=== PATIENT | female | born 1945 | race Caucasian/White ===

== ENCOUNTER 2017-02-23 10:28 | Emergency (ER) | payer MEDICARE ==
[2017-02-23 10:39] VITALS: BMI 29.2
[2017-02-23 10:40] VITALS: TEMP 97.5
[2017-02-23] MEDS ORDERED: Lidocaine 5% Patch TD STA (11:15)
[2017-02-23] MEDS ORDERED: Lidocaine 5% Patch TD ONE (11:26)
--- NOTE | 2017-02-23 11:26 | C.PDOC ---
History Of Present Illness 71 year old female complains of left sided lower back pain that radiates to the left buttock and thigh for 3 days. Patient reports having a history of sciatica , noting it feels the same. Denies injury, weakness, numbness, bowel or bladder incontinence. Time Seen by Provider: 02/23/17 11:09 Chief Complaint (Nursing): Back Pain History Per: Patient History/Exam Limitations: no limitations Onset/Duration Of Symptoms: Days (3) Quality Of Discomfort: "Pain" Severity: Mild Associated Symptoms: denies: Incontinence, New Weakness, New Numbness Exacerbating Factor(s): Movement Recent travel outside of the [place]: No Additional History Per: Patient Past Medical History Reviewed: Historical Data, Nursing Documentation, Vital Signs Vital Signs: Last Vital Signs Temp 97.5 F L 02/23/17 10:39 Pulse 81 02/23/17 12:23 Resp 16 02/23/17 12:23 BP 128/77 02/23/17 12:23 Pulse Ox 98 02/23/17 12:23 - Medical History PMH: HTN Family History: States: Unknown Family Hx - Social History Hx Alcohol Use: No Hx Substance Use: No - Immunization History Hx Tetanus Toxoid Vaccination: No Hx Influenza Vaccination: Yes Hx Pneumococcal Vaccination: No Review Of Systems Constitutional: Negative for: Other (Injury) Genitourinary: Negative for: Incontinence Musculoskeletal: Positive for: Back Pain (Lower), Leg Pain (left thigh and buttocks, radiation) Neurological: Negative for: Weakness, Numbness Physical Exam - Physical Exam Appears: Non-toxic, No Acute Distress Skin: Warm, Dry Head: Atraumatic, Normacephalic Eye(s): bilateral: Normal Inspection, EOMI Nose: Normal Oral Mucosa: Moist Neck: Normal ROM, Supple Chest: Symmetrical Cardiovascular: Rhythm Regular Respiratory: Normal Breath Sounds, No Rales, No Rhonchi, No Wheezing Gastrointestinal/Abdominal: Soft, No Tenderness Back: Normal Inspection, No CVA Tenderness, No Vertebral Tenderness, No Decreased ROM, Paraspinal Tenderness (Paralumbar tenderness, left side greater than right), No Straight Leg Raising Extremity: Normal ROM (x4), No Tenderness, No Deformity, No Swelling Pulses: Left Dorsalis Pedis: Normal, Right Dorsalis Pedis: Normal Neurological/Psych: Oriented x3, Normal Speech, Normal Motor, Normal Sensation Gait: Steady ED Course And Treatment O2 Sat by Pulse Oximetry: 100 (RA) Pulse Ox Interpretation: Normal Medical Decision Making Medical Decision Making: Impression: * Left sided lower back pain that radiates to the left buttock and thigh for 3 days Prior records reviewed: * Patient was seen here 02/17/15 for the same complaint with diagnosis of Low back pain Plan: * Tylenol * Valium * Motrin * Lidoderm Progress, Reassess and Dispo: Patient is in no acute distress at this time and is improving with the lower back pain. Patient has no bony tenderness, weakness, or numbness. Patient was instructed to follow up with PMD for further evaluation and to return if symptoms worsens. Disposition Counseled Patient/Family Regarding: Need For Followup, Rx Given - Disposition Referrals: Tone Escudero MD [Staff Provider] - Disposition: HOME/ ROUTINE Disposition Time: 12:13 Condition: STABLE Additional Instructions: Please take medications as prescribed and as needed for pain. caution muscle relaxant can make you drowsy. Please follow up with your primary doctor for further evaluation and possible MRI. Return to the emergency department at any time if symptoms persist or worsen. Prescriptions: Cyclobenzaprine [Cyclobenzaprine HCl] 10 mg PO TID #30 tab Ibuprofen [Motrin] 600 mg PO Q8 #30 tab Lidocaine 5% [Lidoderm] 1 ea TD Q12 #10 patch Instructions: Sciatica (ED) Forms: [facility] (Kinyarwanda) - POA Present On Arrival: None - Clinical Impression Clinical Impression: Low back pain, Sciatica - Scribe Statement The provider has reviewed the documentation as recorded by the Harshalibradha bradley All medical record entries made by the Harshalibradha were at my direction and personally dictated by me. I have reviewed the chart and agree that the record accurately reflects my personal performance of the history, physical exam, medical decision making, and the department course for this patient. I have also personally directed, reviewed, and agree with the discharge instructions and disposition.
[2017-02-23 12:24] VITALS: BP 128/77; PULSE 81; RESP 16
[2017-02-23 13:35] VITALS: O2SAT 100
== END 2017-02-23 12:23 | disposition home or self-care (01) ==
LOC: C.ER 10:28
DX: M54.42 Lumbago with sciatica, left side (principal)

== ENCOUNTER 2018-10-02 07:46 | Outpatient (CLI) | payer MEDICARE | END 2018-10-02 07:47 | disposition home or self-care (01) | LOC: C.LAB 07:46 | DX: E11.9 Type 2 diabetes mellitus without complications (principal); I10 Essential (primary) hypertension; E03.9 Hypothyroidism, unspecified; N39.0 Urinary tract infection, site not specified ==